=== PATIENT | female | born 1975 | race Caucasian/White ===

== ENCOUNTER 2017-03-04 19:39 | Observation (INO) | payer BC ==
--- NOTE | ~2017-03-04 | CR72 ---
[facility] A Service of [facility] & [facility] RADIOLOGY TEXT RESULTS PATIENT: ANDREW ORTEGA LOCATION: [facility] 303-01 : [birth year] UNIT #: [id number] AGE: [address]: Albaro Black MD SEX: F ORDER DR: [id number] [facility] [address]. [place], [place] [address] [id number] MR#: [id number] Acc #: [id number] NAME: ANDREW ORTEGA : 1975 SEX: F STUDY DATE/TIME: 03/04/2017 19:42 UNIT: [facility] ROOM: STUDY DESCRIPTION: CR Chest Single View Portable Attending Physician: Ale Lorenz M.D. Ordering Physician: Ale Lorenz M.D. Primary Care Physician: No Primary Care Physician MEDICAL IMAGING REPORT This report is preliminary unless electronic signature is present EXAM Portable chest INDICATIONS Chest pain and shortness of air beginning today. FINDINGS A portable view of the chest was obtained. The heart size and vascularity are normal. The lungs are clear and the bones are unremarkable. There is no comparison. IMPRESSION No active disease. Dictated by... Crow Juan M.D. THIS IS AN ELECTRONICALLY VERIFIED REPORT Crow Juan M.D. at 03/06/2017 7:13 AM ALMAZ/tonia TD: 03/04/2017 23:22 JOB #: [id number] MEDICAL IMAGING REPORT Page 1 of 1 COPY
--- NOTE | ~2017-03-04 | EKG ---
PATIENT: ANDREW ORTEGA UNIT #: [id number] Ventricular Rate: 63 BPM Atrial Rate: 63 BPM P-R Interval: 124 ms QRS Duration: 88 ms Q-T Interval: 418 ms QTC Calculation(Bezet): 427 ms P Angie: 70 degrees Calculated R Angie: 76 degrees Calculated T Angie: 64 degrees Diagnosis Line: Normal sinus rhythm Diagnosis Line: Normal ECG Diagnosis Line: No previous ECGs available Diagnosis Line: Confirmed by LATOAY FERRARA MD ([id number]) on 03/05/2017 Diagnosis Line: 4:09:40 PM INTERPRETING MD: JOSIAS PANIAGUA
--- NOTE | ~2017-03-04 | DS ---
Unit #: [id number] #: [id number] Patient: ANDREW ORTEGA [id number] [facility]. [place], [place] [address] [id number] I MR#: [id number] NAME: ANDREW ORTEGA ROOM: 303 Age: Sex: F Admission Date: 03/04/2017 : 1975 Discharge Date: 03/05/2017 Attending Physician: Albaro Black M.D. DISCHARGE SUMMARY SHORT STAY SUMMARY REASON FOR ADMISSION Chest pain. DIAGNOSES 1. Anxiety. 2. Tobacco abuse. 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 She has a history of anxiety and has been on Wellbutrin, as well as as-needed Xanax at home. She has chronic back pain from being in the and takes as-needed hydrocodone. The patient has not been feeling well for the last couple of weeks with some sharp, intermittent chest discomfort with some associated shortness of breath. She went to her primary care provider who did an EKG that she thought was abnormal and sent her to an [facility]. She was admitted through the ER there and was ruled out for IA and discharged home. Patient was in [employer] yesterday walking around when the pain came on very strongly. She was brought to the emergency room where she received IV morphine and the patient improved. Then, after about 20 minutes the pain came back, and she was given sublingual nitroglycerin x3. The pain resolved, and then the pain comes back after the medication wears off. She has negative enzymes x2. Her EKG does not show any acute ST abnormalities. PAST MEDICAL HISTORY 1. Anxiety. 2. Hysterectomy. SOCIAL HISTORY Patient is a half pack per day smoker. No alcohol or drug abuse. 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 FAMILY HISTORY Sudden of her father at the age of 53. Family history of coronary artery disease in both maternal and paternal grandparents. PHYSICAL EXAMINATION VITAL SIGNS: Afebrile, heart rate 64, and blood pressure 91/51. GENERAL: Patient is awake, alert, and in no apparent distress. Unit #: [id number] #: [id number] Patient: ANDREW ORTEGA SKIN: Color is pink. Skin is warm and dry. HEENT: Normal carotid upstrokes. No auscultated bruit. Negative JVD lying supine. Negative hepatojugular reflux. CHEST: Respirations are regular and unlabored at rest. Bilateral breath sounds have good air entry through all lungs. No crackles, rubs, or wheezes are heard. HEART: S1 and S2, regular rate and rhythm. No murmurs, rubs, or gallops. ABDOMEN: Soft, nontender, and nondistended. Positive bowel sounds x4 quadrants. No ascites noted. EXTREMITIES: Moves all extremities without difficulty. DP/PT pulses are 2+ and capillary refill less than three seconds. No peripheral edema. NEUROLOGIC: No focal motor or sensory deficits. DIAGNOSTIC STUDIES LABORATORY: Troponin negative x2. White blood cell count 7.5, hemoglobin 12.7, hematocrit 37.5, and platelet count 213,000. Sodium 140, potassium 4.3, chloride 106, CO2 of 29, BUN 26, creatinine 1.1, and glucose 83. CARDIOLOGY: EKG shows sinus rhythm and no acute ST changes. IMPRESSION 1. Atypical chest pain. 2. Anxiety. 3. Tobacco abuse. 4. Family history of coronary artery disease and sudden of her father at an early age of 53. PLAN Patient has ruled out for IA. She is going to have an exercise Cardiolite stress test today. She is not . She says she has had a hysterectomy. If the stress test is negative, patient will be discharged home to follow up with her primary care physician. Patient also states that her PCP will no longer write for her anxiety medications, and she has not been taking them to make them last longer. She states that she was referred to a psychiatrist but cannot go to a psychiatrist or she will lose her security clearance for her job, and she is trying to put three kids in college. I suspect that most of her symptoms are from anxiety. Will rule out cardiac disorders. Dictated by... WOLF Patino/micky TD: 03/05/2017 22:13 JOB #: [id number] DISCHARGE SUMMARY Page 1 of 1 X X DISCHARGE SUMMARY
--- NOTE | ~2017-03-04 | TH ---
Unit #: [id number] #: [id number] Patient: ANDREW ORTEGA [id number] [address] [address] [id number] I MR#: [id number] NAME: ANDREW ORTEGA : 1975 SEX: F STUDY DATE/TIME: UNIT: C3A PCU ROOM: 303 STUDY DESCRIPTION: Imaging and ECG Attending Physician: Albaro Black M.D. Primary Care Physician: No Primary Care Physician CARDIOLOGY REPORT EXAM Stress nuclear and ECG INDICATION Chest pain, normal troponins, tobacco abuse. SUMMARY The patient exercised on a Dylan protocol to maximal effort. Patient did not note any chest discomfort. Heart rate increased from 60 to 162. Patient completed 10 minutes, 48 seconds of exercise. Heart rate was 98%. Blood pressure increased from 108/75 to 140/80. The rest and stress ECG showed J-point depression, but no diagnostic ST shifts. There were no significant dysrhythmias. Technetium-99m Cardiolite 10.35 and 31.4 mCi was injected at rest and stress respectively. Appropriate views were obtained. FINDINGS The study is adequate. There is no significant patient motion noted either at rest or stress. There is breast attenuation artifact, otherwise no LV or RV enlargement. No increase in lung uptake. Summed stress score is 5, summed difference score is 4. Gated perfusion wall motion analysis demonstrates normal wall motion throughout the myocardium with end-diastolic volume 47 mL, ejection fraction 65%. Perfusion images demonstrate intestinal artifact at rest, less with stress. There is chest wall and breast attenuation artifact, which is minimal but both at rest and stress is present. Otherwise perfusion is normal and equivalent. IMPRESSION 1. Excellent exercise capacity. 2. Normal heart rate and blood pressure responses. 3. Normal stress ECG. 4. Stress nuclear study shows no ischemia or infarction. 5. Normal wall motion with excellent ejection fraction. Dictated by... Albaro Black M.D. Unit #: [id number] #: [id number] Patient: ANDREW ORTEGA JAM/gerhard TD: 03/05/2017 13:12 JOB #: [id number] CARDIOLOGY REPORT Page 1 of 1 X Albaro Black MD CARDIOLOGY REPORT
[2017-03-04 19:45] LABS: BASOPHIL# 0.1 X10e3 (0-0.3); BASOPHIL% 0.6 % (0-2.5); EOSINOPHIL# 0.2 X10e3 (0-0.7); EOSINOPHIL% 2.6 % (0.0-7.0); HEMATOCRIT 43.3 % (35.0-45.0); HEMOGLOBIN 14.7 gm/dL (12.0-16.0); LYMPHOCYTE# 3.6 X10e3 (1.0-3.5); LYMPHOCYTE% 41.3 % (17.0-45.0); MEAN CORPUSCULAR HEMOGLOBIN 31.5 PG (28-34); MEAN CORPUSCULAR HGB CONC 33.9 g/dL (30-36); MEAN PLATELET VOLUME 8.7 FL (6.5-11.5); MONOCYTE# 0.4 X10e3 (0-1.0); MONOCYTE% 4.8 % (3.0-12.0); NEUTROPHIL# 4.4 X10e3 (1.5-7.1); NEUTROPHIL% 50.7 % (40-75); PLATELET COUNT 268 X10e3 (140-420); RED BLOOD COUNT 4.66 X10e (3.90-5.30); RED CELL DISTRIBUTION WIDTH 12.2 % (11.0-15.5); WHITE BLOOD COUNT 8.6 X10e3 (4.0-10.5)
[2017-03-04 19:58] LABS: DIFF IND NO
[2017-03-04 20:05] LABS: PARTIAL THROMBOPLASTIN TIME 24.5 SECONDS (23.5-31.3); PROTHROMBIN TIME (PATIENT) 10.2 SECONDS (9.6-11.5)
[2017-03-04 20:07] LABS: ALBUMIN SERUM 4.8 g/dL (3.5-5.0); BILIRUBIN, DIRECT 0.1 mg/dL (0.0-0.2); BILIRUBIN,INDIRECT 0.5 mg/dL (0.0-0.9); BILIRUBIN,TOTAL 0.6 mg/dL (0.2-2.0); CALCIUM SERUM 9.8 mg/dL (8.4-10.2); GLOM FILT RATE Estimated 70.4 mL/min (>60); POTASSIUM 3.4 mmol/L (3.5-5.1); PROTEIN TOTAL SERUM 7.4 g/dL (6.0-8.3)
[2017-03-04 20:53] LABS: POC - CKMB 2.2 ng/mL (0.0-7.9); POC - TROPONIN <0.05 ng/mL (<=0.05)
[2017-03-04 21:22] LABS: POC - CKMB <1.0 ng/mL (0.0-7.9); POC - TROPONIN <0.05 ng/mL (<=0.05)
[2017-03-05 07:40] LABS: BASOPHIL% 0.3 % (0-2.5); EOSINOPHIL# 0.2 X10e3 (0-0.7); EOSINOPHIL% 3.1 % (0.0-7.0); HEMATOCRIT 37.5 % (35.0-45.0); LYMPHOCYTE# 2.7 X10e3 (1.0-3.5); LYMPHOCYTE% 36.4 % (17.0-45.0); MEAN CELL VOLUME 92.5 FL (83-96); MEAN CORPUSCULAR HEMOGLOBIN 31.4 PG (28-34); MEAN PLATELET VOLUME 8.5 FL (6.5-11.5); MONOCYTE# 0.5 X10e3 (0-1.0); MONOCYTE% 6.3 % (3.0-12.0); NEUTROPHIL% 53.9 % (40-75); PLATELET COUNT 213 X10e3 (140-420); RED BLOOD COUNT 4.06 X10e (3.90-5.30); RED CELL DISTRIBUTION WIDTH 11.9 % (11.0-15.5); WHITE BLOOD COUNT 7.5 X10e3 (4.0-10.5)
[2017-03-05 07:41] LABS: DIFF IND NO; HEMOGLOBIN 12.7 gm/dL (12.0-16.0)
[2017-03-05 08:16] LABS: BUN/CREATININE RATIO 23.63; CALCIUM SERUM 9.4 mg/dL (8.4-10.2); CREATININE SERUM 1.1 mg/dL (0.6-1.4); GLOM FILT RATE Estimated 62.8 mL/min (>60); POTASSIUM 4.3 mmol/L (3.5-5.1)
[2017-03-05 08:41] LABS: %MB 2.7 % (0.0-4.0); MB 1.6 ng/ml
== END 2017-03-05 14:31 | disposition home or self-care (01) | DRG 313 ==
LOC: CED 19:39 → CEDOF 23:45 → C3A PCU 03-05 01:44
PROVIDERS: Emergency Medicine; Internal Medicine
DX: R07.89 Other chest pain (principal); F41.9 Anxiety disorder, unspecified; F17.200 Nicotine dependence, unspecified, uncomplicated; Z82.49 Family history of ischemic heart disease and other diseases of the circulatory system; Z90.710 Acquired absence of both cervix and uterus
CPT/HCPCS: 36415; 71010; 78452; 80048; 80061; 80076; 82550; 82553; 83690; 84443; 84484; 84703; 85025; 85379; 85610; 85730; 93005; 93017; 96374; 96376; 99285; A9500; G0378; J2270